=== PATIENT | female | born 1985 | race African-American/Black ===

== ENCOUNTER 2016-10-20 01:37 | Emergency (ER) | payer SELFPAY ==
[2016-10-20 02:01] VITALS: BP 142/85
[2016-10-20] MEDS ORDERED: FAMO20TA5 PO (02:10)
--- NOTE | 2016-10-20 02:14 | PHYS DOC ---
Past Medical History Past Medical History: No Pertinent History Past Surgical History: No Surgical History Alcohol Use: Occasionally Drug Use: None Adult General Chief Complaint Chief Complaint: SORE THROAT HPI HPI Patient is a 31 year old female who presents with sore throat and pain with swallowing for the past day. She states she was admitted at [facility] yesterday for nausea and vomiting with bloody emesis after alcohol intoxication. States she left against medical advice yesterday morning. She has continued sore throat and painful swallowing. She gave verbal consent for me to read records from [facility] admission. It appears that she was evaluated in the emergency department, admitted for likely gastritis related to alcohol intoxication, and was not seen by admitting doctor prior to leaving the hospital against medical advice. Nursing notes show she was told she could not go smoke, so she chose to leave the hospital prior to evaluation. She is now tolerating oral intake, but has burning pain with swallowing and at rest. She denies fever or chills, dyspnea, chest pain, abdominal pain, nausea or vomiting , diarrhea, bloody or dark stools. Review of Systems Review of Systems Constitutional: Denies fever or chills [] Eyes: Denies change in visual acuity, redness, or eye pain [] HENT: Denies nasal congestion [] Respiratory: Denies cough or shortness of breath [] Cardiovascular: No additional information not addressed in HPI [] GI: Denies abdominal pain, nausea, vomiting, bloody stools or diarrhea [] : Denies dysuria or hematuria [] Musculoskeletal: Denies back pain or joint pain [] Integument: Denies rash or skin lesions [] Neurologic: Denies headache, focal weakness or sensory changes [] Endocrine: Denies polyuria or polydipsia [] Allergies Allergies Allergies Coded Allergies Type Severity Reaction Last Updated Verified No Known Drug Allergies 06/28/14 No Physical Exam Physical Exam Constitutional: Well developed, well nourished, no acute distress, non-toxic appearance. [] HENT: Normocephalic, atraumatic, bilateral external ears normal, oropharynx moist, no oral exudates, nose normal. [] Eyes: PERRLA, EOMI. [] Neck: Normal range of motion, no tenderness, supple, no stridor. [] Cardiovascular:Heart rate regular rhythm [] Lungs & Thorax: Bilateral breath sounds clear to auscultation [] Abdomen: Bowel sounds normal, soft, no tenderness. [] Skin: Warm, dry, no erythema, no rash. [] Back: Normal range of motion. [] Extremities: No tenderness, ROM intact. [] Neurologic: Alert and oriented X 3, normal motor function, normal sensory function, no focal deficits noted. [] Psychologic: Affect normal, judgement normal, mood normal. [] Current Patient Data Vital Signs Vital Signs Date Time Temp Pulse Resp B/P Pulse Ox O2 Delivery O2 Flow Rate FiO2 10/20/16 02:01 101 18 98 Room Air Course & Med Decision Making Course & Med Decision Making Discussed symptomatic care for likely gastritis and esophagitis related to multiple episodes of nausea and vomiting. She is tolerating oral intake at this time. Return precautions given. She understands and agrees with plan. Dragon Disclaimer Dragon Disclaimer This electronic medical record was generated, in whole or in part, using a voice recognition dictation system. Departure Departure Impression: Primary Impression: Sore throat Additional Impression: Gastritis Disposition: HOME, SELF-CARE Condition: STABLE Referrals: NO PCP (PCP) Patient Instructions: Gastritis, Adult Additional Instructions: Take famotidine to help with gastritis. Take Mylanta as needed for sore throat. Follow-up with your primary care doctor within one week. Return for any concerns. Scripts Famotidine 20 Mg [id number] Mg PO BID #30 TAB Prov:Zoraida PYLE MD 10/20/16 Problem Qualifiers Additional Impression: Gastritis Gastritis type: alcoholic Chronicity: acute Gastritis bleeding: presence of bleeding unspecified Qualified Code: K29.20 - Alcoholic gastritis without bleeding Zoraida PYLE MD Oct 20, 2016 02:14
[2016-10-20] MEDS ORDERED: MAG HYDROX/ALUMINUM HYD/SIMETH 30 ML ORAL.SUSP PO ONE (02:15)
== END 2016-10-20 02:25 | disposition home or self-care (01) ==
LOC: ER 01:37
DX: J02.9 Acute pharyngitis, unspecified (principal); K29.20 Alcoholic gastritis without bleeding
CPT/HCPCS: 99283

== ENCOUNTER 2018-03-26 07:32 | Emergency (ER) | payer SELFPAY ==
[~2018-03-26] VITALS: Ht 165.1 cm; Wt 49.0 kg
[~2018-03-26 07:32] MED LIST: FAMO20TA5 PO
[2018-03-26 07:37] VITALS: BP 129/78
[2018-03-26] MEDS ORDERED: IBUPROFEN 800 MG TABLET. PO ONE (08:00)
[2018-03-26] MEDS ORDERED: IBUP-1007 PO (08:03)
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
== END 2018-03-26 08:13 | disposition home or self-care (01) ==
LOC: ER 07:32
DX: M54.6 Pain in thoracic spine (principal); M25.511 Pain in right shoulder; M25.512 Pain in left shoulder
CPT/HCPCS: 99282